=== PATIENT | male | born 1970 | race American Indian/Alaskan Native ===

== ENCOUNTER 2017-12-05 13:20 | Inpatient (IN) | payer MEDICAID ==
--- NOTE | 2017-12-05 14:05 | ED PDOC ---
Arrival/HPI - General Chief Complaint: Lower Extremity Problem/Injury Time Seen by Provider: 12/05/17 13:42 Historian: Patient - History of Present Illness Narrative History of Present Illness (Text): 12/05/17 1600 pt p/w + 3 weeks onset of not feeling well, + easily fatigued, general malaise; pt states mild exertional sob, sob worsening x last week, + intermittent chest tightness/pain x 2 weeks, worse with exertion; pt states chest pain is non- radiating; pt states + lightheadedness/dizziness, seeing stars at times but NO LOC, at times feeling like he was about to pass out; + chills, ? fever, no sweats; no palpitations, no abd pain, no n/v, + noted b/l leg swelling/pain x 3 weeks; pt felt like he cant wear his shoes due to the swelling; pt states + weight gain ~ 20-30 lbs since few months ago; pt states no urinary/bowel changes , no gross bleeding, no dark stools/bloody stools; pt denied other complaints; pt is here for further eval pt states no fall/trauma/sick contact, no travel occupational therapist was [facility] PCP: NONE Family hx: not significant Time/Duration: > week (2-3 weeks) Symptom Onset: Gradual Symptom Course: Worsening Severity Level: Severe Activities at Onset: Rest Context: Home Past Medical History - Provider Review Nursing Documentation Reviewed: Yes - Travel History Have you recently traveled outside [place] w/in the past 3 mons?: No - Past History Past History: No Previous - Infectious Disease Hx of Infectious Diseases: None - Psychiatric Hx Bipolar Disorder: Yes Hx Schizophrenia: Yes Hx Substance Use: No - Anesthesia Hx Anesthesia: No Family/Social History - Physician Review Nursing Documentation Reviewed: Yes Family/Social History: No Known Family HX Smoking Status: Former Smoker (stopped smoking ~ 10 years ago) Hx Alcohol Use: No (stopped drinking ~ 10 years ago) Frequency of alcohol use: Socially Hx Substance Use: No Hx Substance Use Treatment: No Allergies/Home Meds Allergies/Adverse Reactions: Allergies No Known Allergies Allergy (Verified 12/05/17 13:42) Home Medications: Home Meds Medication Instructions Recorded Confirmed QUEtiapine [SEROquel] 200 mg PO BID 12/05/17 12/05/17 Review of Systems - Review of Systems Constitutional: Fatigue, Weight Change Eyes: Normal ENT: Normal Respiratory: SOB. absent: Cough, Sputum, Wheezing Cardiovascular: Chest Pain Gastrointestinal: Normal Genitourinary Male: Normal Musculoskeletal: Normal Skin: Normal Neurological: Dizziness Endocrine: Normal Hemo/Lymphatic: Normal Psychiatric: Normal Physical Exam Vital Signs Reviewed: Yes Vital Signs Temp Pulse Resp BP Pulse Ox 12/05/17 15:56 75 18 132/88 100 12/05/17 14:56 136/85 12/05/17 14:14 98.0 F 82 17 140/95 H 99 12/05/17 13:37 98.1 F 82 16 127/80 97 Temperature: Afebrile Blood Pressure: Normal Pulse: Regular Respiratory Rate: Normal Appearance: Positive for: Well-Appearing, Uncomfortable, Other (mild distress due to leg pain; alert/awake, GCS = 15, oriented x 3, cooperative, follows command with ease) Pain Distress: Mild Mental Status: Positive for: Alert and Oriented X 3 - Systems Exam Head: Present: Atraumatic, Normocephalic Pupils: Present: PERRL, Other (no nystagmus, no photophobia, sclera anicteric) Extroacular Muscles: Present: EOMI Conjunctiva: Present: Normal Ears: Present: Normal Mouth: Present: Moist Mucous Membranes, Normal Teeth, Other (no drooling/stridor , no exudate/lesions, no dysphonia) Pharnyx: Present: Normal Nose (External): Present: Atraumatic Nose (Internal): Present: Normal Inspection Neck: Present: Normal Range of Motion, Trachea Midline, Other (intact ROM, no midline tenderness, no nuchal rigidity, no meningeal signs). No: MIDLINE TENDERNESS Respiratory/Chest: Present: Clear to Auscultation, Good Air Exchange, Other ( CTA b/l, no w/r/r, no accessory muscle use noted) Cardiovascular: Present: Regular Rate and Rhythm, Normal S1, S2. No: Murmurs Abdomen: Present: Normal Bowel Sounds, Other (well nourished male, no focal tenderness, no cuenca's sign, no mcburney's point tenderness, no masses/rebound/ guarding/rigidity) Back: Present: Normal Inspection. No: CVA Tenderness, Midline Tenderness Upper Extremity: Present: Normal Inspection, Normal ROM, NORMAL PULSES, Neurovascularly Intact Lower Extremity: Present: Normal Inspection, Edema, NORMAL PULSES, Normal ROM, Neurovascularly Intact, Capillary Refill < 2 s, Other (+ diffuse lower ext tenderness, + swelling with pitting edema +2-3/5 b/l up to b/l knee; strength 5/ 5 grossly intact in all limbs, neurovasc intact b/l). No: Primitivo's Sign, Deformity Neurological: Present: GCS=15, CN II-XII Intact, Speech Normal, Other (NIH stroke scale ~ 0, no facial asymmetries, no slurr speech) Skin: Present: Warm, Normal Color, Other (cap refill ~ 1sec, no ulcerations, no petechiae, no rashes, no lesions) Psychiatric: Present: Alert, Oriented x 3 Medical Decision Making ED Course and Treatment: 12/05/17 14:04 Impression: sob/near syncope, weakness, b/l leg swelling/pain, chest pain i have consider all the differential diagnosis regarding pt's chief medical complaints/clinical findings, including but are not limited to: r/o ACS, r/o failure, unlikely PE A/P: r/o acs, r/o heart failure, r/o PE?? - labs - iv - xray - ct?? - acs eval - observe - supportive care 12/05/2017 16:26 Chest X-ray IMPRESSION: No active pulmonary disease. Dictator: Talia Mo MD 12/05/17 17:04 pt is currently stable pt denied sob, no active chest pain pt continues to have b/l leg pain pt is made aware of his medical results agrees with admission I spoke to hospitalists correspondence review clerk, Dr Yan, made aware, agrees with admission Re-evaluation Time: 16:47 Reassessment Condition: Improving,but remains with symptoms - Lab Interpretations Lab Results: 12/05/17 14:50 12/05/17 14:50 Lab Results 12/05/17 15:26: Urine Color Yellow, Urine Appearance Clear, Urine pH 6.0, Ur Specific [place] 1.020, Urine Protein Negative, Urine Glucose (UA) Negative, Urine Ketones Negative, Urine Blood Trace-intact H, Urine Nitrate Negative, Urine Bilirubin Negative, Urine Urobilinogen 1.0 H, Ur Leukocyte Esterase Negative, Urine RBC 0 - 2, Urine WBC Negative, Ur Epithelial Cells None 12/05/17 14:52: pO2 50, VBG pH 7.30 L, VBG pCO2 59.0, VBG HCO3 29.0 H, VBG Total CO2 30.8 H, VBG O2 Sat (Calc) 86.7 H, VBG Base Excess 1.2, VBG Potassium 4.6, Glucose 74 L, Lactate 1.4, FiO2 21.0, Sodium 136.0, Chloride 106.0, Venous Blood Potassium 4.6 12/05/17 14:50: Sodium 140, Potassium 4.3, Chloride 103, Carbon Dioxide 28, Anion Gap 13, BUN 16, Creatinine 0.8, Est GFR ( Amer) > 60, Est GFR (Non- Af Amer) > 60, Random Glucose 86, Calcium 8.9, Total Bilirubin 0.8, AST 22, ALT 50, Alkaline Phosphatase 86, Lactate Dehydrogenase 607, Total Creatine Kinase 323 H, CK-MB (CK-2) 1.9, CK-MB (CK-2) % Cancelled, Troponin I < 0.01, NT-Pro-B Natriuret Pep 38.4, Total Protein 7.0, Albumin 3.4, Globulin 3.6, Albumin/ Globulin Ratio 0.9 L, Lipase 27 12/05/17 14:50: PT 14.5 H, INR 1.27 H, APTT 30.6 12/05/17 14:50: WBC 5.2, RBC 3.50, Hgb 9.7 L, Hct 31.0 L, MCV 88.6, MCH 27.7, MCHC 31.3, RDW 14.2, Plt Count 198, MPV 10.2, Gran % 51.8, Lymph % (Auto) 29.0, Harvey % (Auto) 7.5 H, Eos % (Auto) 11.3 H, Baso % (Auto) 0.4, Gran # 2.70, Lymph # (Auto) 1.5, Harvey # (Auto) 0.4, Eos # (Auto) 0.6, Baso # (Auto) 0.02 I have reviewed the lab results: Yes Interpretation: Abnormal lab values (mildly elevated CK) - RAD Interpretation Narrative RAD Interpretations (Text): 12/05/17 16:47 HISTORY: COMPARISON: No prior. TECHNIQUE: Chest PA and lateral FINDINGS: LINES AND TUBES: None. LUNG AND PLEURA: The lungs are well inflated and clear. HEART AND MEDIASTINUM: The heart is not enlarged. The hilar and mediastinal contours are within normal limits. SKELETAL STRUCTURES: The bony structures are within normal limits for the patient's age. VISUALIZED UPPER ABDOMEN: Normal. OTHER FINDINGS: None. IMPRESSION: No active pulmonary disease. 12/05/17 16:49 Prelim U/S duplex: Negative for DVT b/l lower ext Radiology Orders: 12/05/17 14:00 CHEST TWO VIEWS (PA/LAT) [RAD] Stat DUPLEX LOWER EXTRM VEIN BILAT [US] Stat Health Outreach Worker: Radiologist - EKG Interpretation EKG Interpretation (Text): 12/05/17 16:49 NSR at 80 bpm, normal axis, no ectopy, min voltage criteral for LVH, no st changes, ABNL EKG; no old ekg to compare with Interpreted by ED Physician: Yes Type: 12 lead EKG Comparison: No previous EKG avail. - Medication Orders Current Medication Orders: Discontinued Medications Aspirin (Aspirin) 325 mg PO STAT STA Stop: 12/05/17 14:04 Last Admin: 12/05/17 14:56 Dose: 325 mg Furosemide (Lasix) 40 mg IVP STAT STA Stop: 12/05/17 14:04 Last Admin: 12/05/17 14:56 Dose: 40 mg MAR Blood Pressure Document 12/05/17 14:56 SF (Rec: 12/05/17 14:56 SF [id number]) Blood Pressure Blood Pressure (100/60-150/90) 136/85 IVP Administration Document 12/05/17 14:56 SF (Rec: 12/05/17 14:56 [id number]) Charges for Administration # of IVP Administrations 1 Oxycodone/Acetaminophen (Percocet 5/325 Mg Tab) 1 tab PO STAT STA Stop: 12/05/17 16:55 Disposition/Present on Arrival - Present on Arrival Any Indicators Present on Arrival: No History of DVT/PE: No History of Uncontrolled Diabetes: No Urinary Catheter: No History of Decub. Ulcer: No History Surgical Site Infection Following: None - Disposition Have Diagnosis and Disposition been Completed?: Yes Diagnosis: Chest pain with low risk for cardiac etiology, Pain and swelling of lower leg, Weakness generalized, Lightheadedness, Near syncope Disposition: HOSPITALIZED Disposition Time: 16:59 Patient Plan: Admission Patient Problems: Current Active Problems Problem Status Onset Chest pain with low risk for cardiac etiology Acute Pain and swelling of lower leg Acute Weakness generalized Acute Lightheadedness Acute Near syncope Acute Condition: STABLE Discharge Instructions (ExitCare): Chest Pain (ED), Weakness (ED) Print Language: PORTUGUESE Forms: [employer] (Frisian)
[2017-12-05 15:24] LABS: VENOUS BLOOD GAS BASE EXCESS 1.2 mmol/L (0.0-2.0); VENOUS BLOOD GAS PO2 50 mm/Hg (30-55)
[2017-12-05 15:43] LABS: BASO # 0.02 K/mm3 (0.0-2.0); BASO % 0.4 % (0.0-3.0); EOS # 0.6 (0.0-0.7); EOS % 11.3 % (1.5-5.0); GRAN # 2.7 (1.4-6.5); GRAN % 51.8 % (50.0-68.0); HEMOGLOBIN 9.7 g/dL (14.0-18.0); LYMPH # 1.5 (1.2-3.4); MEAN CELL VOLUME 88.6 fl (80.0-105.0); MEAN CORPUSCULAR HEMOGLOBIN 27.7 pg (25.0-35.0); MEAN CORPUSCULAR HGB CONC 31.3 g/dl (31.0-37.0); MEAN PLATELET VOLUME 10.2 fl (7.0-11.0); MONO # 0.4 (0.1-0.6); MONO % 7.5 % (1.0-6.0); RBC 3.5 10^6/uL (3.5-6.1); RED CELL DISTRIBUTION WIDTH 14.2 % (11.5-14.5); WHITE BLOOD COUNT 5.2 10^3/ul (4.5-11.0)
[2017-12-05 15:52] LABS: INR 1.27 (0.93-1.08); PROTHROMBIN TIME 14.5 SECONDS (9.4-12.5)
[2017-12-05 15:53] LABS: PARTIAL THROMBOPLASTIN TIME 30.6 Seconds (25.1-36.5)
[2017-12-05 15:57] LABS: URINE BILIRUBIN NEGATIVE (NEGATIVE); URINE BLOOD TRACE-INTACT (NEGATIVE); URINE GLUCOSE (UA) NEGATIVE (NEGATIVE); URINE LEUKOCYTE ESTERASE NEGATIVE Leu/uL (NEGATIVE); URINE NITRATE NEGATIVE (NEGATIVE); URINE PROTEIN NEGATIVE mg/dL (<30 mg/dL)
[2017-12-05 16:01] LABS: ALB/GLOB RATIO 0.9 (1.1-1.8); ALBUMIN 3.4 g/dL (3.0-4.8); ALT/SGPT 50 U/L (7-56); AST/SGOT 22 U/L (17-59); BLOOD UREA NITROGEN 16 mg/dL (7-21); CALCIUM 8.9 mg/dL (8.4-10.5); GFR AFRICAN-AMERICAN > 60; GFR NON-AFRICAN AMERICAN > 60; LIPASE 27 U/L (23-300)
[2017-12-05 16:04] LABS: URINE APPEARANCE CLEAR (CLEAR); URINE COLOR YELLOW (YELLOW)
[2017-12-05 16:09] LABS: B-TYPE NATRIURETIC PEPTIDE 38.4 pg/mL (0-450); TROPONIN I < 0.01 ng/mL
[2017-12-05 16:21] LABS: URINE RBC 0 - 2 /hpf (0-2); URINE WBC NEGATIVE /hpf (0-6)
[2017-12-05 16:33] LABS: CK-MB 1.9 ng/mL (0.0-3.6)
[2017-12-05] MEDS ORDERED: Oxycodone/Acetaminophen 5/325 mg Tab PO STA (16:54)
[2017-12-05 17:40] LABS: BARBITURATES, UR NEGATIVE (NEGATIVE); BENZODIAZEPINES, UR POSITIVE (NEGATIVE); OPIATES, UR POSITIVE (NEGATIVE); PHENCYCLIDINE, UR NEGATIVE (NEGATIVE)
[2017-12-05 17:58] LABS: MAGNESIUM 2.1 mg/dL (1.7-2.2)
[2017-12-05] MEDS ORDERED: QUETIAPINE 200 MG PO SCH (18:00)
--- NOTE | 2017-12-05 18:23 | CP.PCM.HP ---
<Chris White - Last Filed: 12/05/17 18:12> History of Present Illness - History of Present Illness History of Present Illness: Mr. Robles is a 47 year old male with a past medical history significant for schizophrenia and bipolar disorder who presents with two weeks of bilateral lower extremity edema and four weeks of dyspnea on exertion with associated chest tightness. Patient reports that two weeks ago he awoke to find both of his legs swollen with no inciting event to his recollection. He denies this ever happening in the past. He reports that he has sharp pain in his legs whenever he walks as well as at rest. He also endorses a four week history of progressive dyspnea on exertion when walking half of a block. He was previously able to walk several blocks without difficulty. This is associated with a chest tightness on the left side of his chest with radiation to the left shoulder. He reports that this tightness does not occur with rest and that it lasts anywhere from five to ten minutes. He reports that both his dyspnea and chest tightness are relieved with rest. He has never had either of these complaints in the past. Patient has had one recent diarrheal illness two weeks ago that lasted four days which resolved on its own. He denies any other recent illnesses. Of note, patient was recently incarcerated. Patient denies any fever, chills, headache, changes in his vision, dysphagia, sore throat, chest pain, palpitations, syncope, cough, wheezing, sputum, hemoptysis, abdominal pain, N/V , constipation, hematuria, changes in his urine stream, skin changes, numbness/ tingling of any extremity, sick contacts, recent travel, recent surgery or any recent hospitalizations. PMH: Schizophrenia and Bipolar Disorder PSH: Hernia repair at [facility] [place] (1999) Family History: Denies any history of CVA, NV, CAD, HTN or DM2; Both sisters from an unknown cancer before the age of 55 Social History: Denies any tobacco, alcohol or illicit drug use; Works as a construction craft laborer; Has manager of case management Allergies: NKDA Home Medications: Seroquel 200mg BID Present on Admission - Present on Admission Any Indicators Present on Admission: No Review of Systems - Review of Systems Review of Systems: As per HPI, otherwise negative Past Patient History - Infectious Disease Hx of Infectious Diseases: None - Past Social History Smoking Status: Former Smoker (stopped smoking ~ 10 years ago) - PSYCHIATRIC Hx Bipolar Disorder: Yes Hx Schizophrenia: Yes Hx Substance Use: No - ANESTHESIA Hx Anesthesia: No Meds Allergies/Adverse Reactions: Allergies Allergy/AdvReac Type Severity Reaction Status Date / Time No Known Allergies Allergy Verified 12/05/17 13:42 Physical Exam - Constitutional Appears: Non-toxic, No Acute Distress - Head Exam Head Exam: ATRAUMATIC, NORMOCEPHALIC - Eye Exam Eye Exam: EOMI, PERRL Pupil Exam: NORMAL ACCOMODATION - ENT Exam ENT Exam: Mucous Membranes Moist, Normal Exam, Normal Oropharynx - Neck Exam Neck exam: Positive for: Full Rom, Normal Inspection, Tenderness. Negative for : Lymphadenopathy, Meningismus, Thyromegaly - Respiratory Exam Respiratory Exam: Clear to Auscultation Bilateral, NORMAL BREATHING PATTERN. absent: Accessory Muscle Use, Chest Wall Tenderness, Decreased Breath Sounds, Prolonged Expiratory Phase, Rales, Rhonchi, Wheezes, Respiratory Distress, Stridor - Cardiovascular Exam Cardiovascular Exam: REGULAR RHYTHM, RRR, +S1, +S2. absent: Bradycardia, Tachycardia, Clicks, Diastolic murmur, Gallop, Irregular Rhythm, JVD, Rubs, +S4 , Systolic Murmur - GI/Abdominal Exam GI & Abdominal Exam: Normal Bowel Sounds, Soft. absent: Bruit, Diminished Bowel Sounds, Distended, Firm, Guarding, Hernia, Hyperactive Bowel Sounds, Hypoactive Bowel Sounds, Mass, Organomegaly, Pulsatile Mass, Rebound, Rigid, Tenderness - Exam Exam: absent: Scrotal Swelling - Extremities Exam Extremities exam: Positive for: calf tenderness, normal capillary refill, pedal edema (1+ pitting b/l to knees), tenderness, pedal pulses present. Negative for : normal inspection - Back Exam Back exam: NORMAL INSPECTION. absent: CVA tenderness (L), CVA tenderness (R), muscle spasm, paraspinal tenderness, tenderness, vertebral tenderness - Neurological Exam Neurological exam: Alert, CN II-XII Intact, Oriented x3, Reflexes Normal - Psychiatric Exam Psychiatric exam: Normal Affect, Normal Mood - Skin Skin Exam: Dry, Intact, Normal Color, Warm Results - Vital Signs Recent Vital Signs: Last Vital Signs Temp 98.0 F 12/05/17 14:14 Pulse 72 12/05/17 17:34 Resp 17 12/05/17 17:34 BP 134/80 12/05/17 17:34 Pulse Ox 99 12/05/17 17:34 - Labs Result Diagrams: 12/05/17 14:50 12/05/17 14:50 Assessment & Plan - Assessment and Plan (Free Text) Assessment: 47 year old male with a past medical history significant for schizophrenia and bipolar disorder who presents with two weeks of bilateral lower extremity edema and four weeks of dyspnea on exertion with associated chest tightness. In the ED , patient was found to have a no active disease on chest x-ray and to be in normal sinus rhythm at 80 beats/min. A lower extremity ultrasound was preliminarily negative for DVT's. His BNP, BUN/Creatinine and initial troponin were within normal limits. He was also found to have a normocytic anemia on CBC. Plan: 1. Lower Extremity Edema -Lower Extremity Ultrasound preliminarily negative for DVT's -BNP and BUN/Creatinine within normal limits -UA without significant abnormalities -CT Abdomen/Pelvis with PO Contrast and Echo pending -IV Lasix 40mg IVP Daily -Tylenol PRN for pain control -PT/OT evaluation and treatment pending 2. Dyspnea on Exertion with associated Chest Tightness -EKG showing normal sinus rhythm at 80 beats/min with no ST-T wave changes -Initial troponin negative, serial troponins pending -Lipase and TSH within normal limits -Lipid panel and Hemoglobin A1c pending -Pain control as above -Strict I/O's and daily weights -Cardiology consulted, all recommendations appreciated 3. Normocytic Anemia -H/H at 9.7/31.0 -Iron, TIBC, Ferritin, Transferrin, Haptoglobin, Lead, Vitamin B12, Folate and Peripheral Smear pending -Continue to monitor with daily CBC's 4. History of Bipolar Disorder and Schizophrenia -Continue home Seroquel GI Prophylaxis: Protonix DVT Prophylaxis: Heparin Patient seen and case discussed with attending, Dr. Brennan Yan. - Date & Time Date: 12/05/17 Time: 18:28 <Brennan Yan - Last Filed: 12/06/17 10:05> Results - Vital Signs Recent Vital Signs: Last Vital Signs Temp 98.4 F 12/06/17 06:00 Pulse 75 12/06/17 06:00 Resp 20 12/06/17 06:00 BP 133/84 12/06/17 06:00 Pulse Ox 98 12/06/17 06:00 - Labs Result Diagrams: 12/06/17 06:00 12/06/17 06:00 Labs: Laboratory Results - last 24 hr 12/05/17 12/05/17 12/05/17 20:05 20:05 20:05 WBC RBC Hgb Hct MCV MCH MCHC RDW Plt Count MPV Gran % Lymph % (Auto) Henry % (Auto) Eos % (Auto) Baso % (Auto) Gran # Lymph # (Auto) Henry # (Auto) Eos # (Auto) Baso # (Auto) Haptoglobin TNP APTT Sodium Potassium Chloride Carbon Dioxide Anion Gap BUN Creatinine Est GFR ( Amer) Est GFR (Non-Af Amer) Random Glucose Calcium Iron TIBC % Saturation Total Bilirubin AST ALT Alkaline Phosphatase Troponin I < 0.01 Total Protein Albumin Globulin Albumin/Globulin Ratio Alcohol, Quantitative < 10 12/05/17 12/06/17 12/06/17 20:05 03:00 06:00 WBC 4.3 L RBC 3.90 Hgb 10.6 L Hct 33.8 L MCV 86.7 MCH 27.2 MCHC 31.4 RDW 14.1 Plt Count 215 MPV 9.9 Gran % 50.6 Lymph % (Auto) 27.9 Henry % (Auto) 9.1 H Eos % (Auto) 12.2 H Baso % (Auto) 0.2 Gran # 2.16 Lymph # (Auto) 1.2 Henry # (Auto) 0.4 Eos # (Auto) 0.5 Baso # (Auto) 0.01 Haptoglobin APTT Sodium Potassium Chloride Carbon Dioxide Anion Gap BUN Creatinine Est GFR ( Amer) Est GFR (Non-Af Amer) Random Glucose Calcium Iron 35 L TIBC 219 L % Saturation 16 L Total Bilirubin AST ALT Alkaline Phosphatase Troponin I < 0.01 Total Protein Albumin Globulin Albumin/Globulin Ratio Alcohol, Quantitative 12/06/17 12/06/17 06:00 06:00 WBC RBC Hgb Hct MCV MCH MCHC RDW Plt Count MPV Gran % Lymph % (Auto) Henry % (Auto) Eos % (Auto) Baso % (Auto) Gran # Lymph # (Auto) Henry # (Auto) Eos # (Auto) Baso # (Auto) Haptoglobin APTT 29.6 Sodium 141 Potassium 4.3 Chloride 103 Carbon Dioxide 28 Anion Gap 14 BUN 12 Creatinine 0.6 L Est GFR ( Amer) > 60 Est GFR (Non-Af Amer) > 60 Random Glucose 102 Calcium 9.3 Iron TIBC % Saturation Total Bilirubin 1.2 AST 28 ALT 52 Alkaline Phosphatase 100 Troponin I Total Protein 7.5 Albumin 3.6 Globulin 4.0 Albumin/Globulin Ratio 0.9 L Alcohol, Quantitative Attending/Attestation - Attestation I have personally seen and examined this patient.: Yes I have fully participated in the care of the patient.: Yes I have reviewed all pertinent clinical information: Yes Notes (Text): I have seen and examined the patient at bedside. Agree with the above note with the following additions/ exceptions: Briefly this is 47 year old male with history of schizophrenia and bipolar disorder who was recently incarcerated came today for evaluation of bilateral lower extremity edema, M[place], significant unintentional weight gain and chest tightness. Patient denies any recent immobilization or palpitations. He does not smoke, drink or use drugs. Denies family history of sudden cardiac , cardiomyopathy, DVT, PE or cancer. Bilateral LE US prelim negative for DVT. Will follow up official results. Will order CT abdomen and pelvis. Will order serial trop, ekg, echo and strict Is and Os. Start Lasix. Will order for PT eval. Will do work up for normocytic anemia. Continue seroquel. Patient denies homicidal and suicidal ideation. Upon discharge patient will follow up in [facility] clinic and psychiatrist. Dr Brennan Yan
--- NOTE | 2017-12-05 19:08 | US ---
HISTORY: Leg pain and swelling. Evaluate for DVT PHYSICIAN(S): Papi Conde MD. TECHNIQUE: Duplex sonography and color-flow Doppler with graded compression were used to evaluate the deep venous systems of both lower extremities. The exam is limited by edema. FINDINGS: The visualized deep venous systems of both lower extremities are sonographically normal and compressible. Normal wave forms and augmentation are seen. There is no sonographic evidence for deep venous thrombosis in the visualized segments of both lower extremities. IMPRESSION: No sonographic evidence for deep venous thrombosis in the visualized segments of both lower extremities.
[2017-12-05] MEDS ORDERED: Iohexol 240 (50 ml) ONE (20:20)
[2017-12-05 20:37] LABS: IRON 35 ug/dL (45-180)
[2017-12-05 20:46] LABS: % IRON SATURATION 16 % (20-55); TOTAL IRON BINDING CAPACITY 219 ug/dL (261-462)
[2017-12-05] MEDS ORDERED: Barium Sulfate Susp 2.1% w/v, 2.0% w/w 450 mL Bottle PO ONE (20:55)
[2017-12-06] MEDS ORDERED: Pantoprazole 40 mg EC Tab PO SCH (06:00)
[2017-12-06 06:10] VITALS: BP 133/84; PULSE 75; RESP 20; TEMP 98.4; O2SAT 98
[2017-12-06 07:10] LABS: BASO # 0.01 K/mm3 (0.0-2.0); BASO % 0.2 % (0.0-3.0); EOS # 0.5 (0.0-0.7); EOS % 12.2 % (1.5-5.0); GRAN # 2.16 (1.4-6.5); GRAN % 50.6 % (50.0-68.0); HEMOGLOBIN 10.6 g/dL (14.0-18.0); LYMPH # 1.2 (1.2-3.4); LYMPH % 27.9 % (22.0-35.0); MEAN CELL VOLUME 86.7 fl (80.0-105.0); MEAN CORPUSCULAR HEMOGLOBIN 27.2 pg (25.0-35.0); MEAN CORPUSCULAR HGB CONC 31.4 g/dl (31.0-37.0); MEAN PLATELET VOLUME 9.9 fl (7.0-11.0); MONO # 0.4 (0.1-0.6); MONO % 9.1 % (1.0-6.0); RBC 3.9 10^6/uL (3.5-6.1); RED CELL DISTRIBUTION WIDTH 14.1 % (11.5-14.5); WHITE BLOOD COUNT 4.3 10^3/ul (4.5-11.0)
[2017-12-06 07:27] LABS: ALB/GLOB RATIO 0.9 (1.1-1.8); ALBUMIN 3.6 g/dL (3.0-4.8); ALT/SGPT 52 U/L (7-56); AST/SGOT 28 U/L (17-59); BLOOD UREA NITROGEN 12 mg/dL (7-21); CALCIUM 9.3 mg/dL (8.4-10.5); GFR AFRICAN-AMERICAN > 60; GFR NON-AFRICAN AMERICAN > 60
[2017-12-06] MEDS ORDERED: Apap-Butalbital-Caffeine 325-50-40mg Tab PO PRN (08:02)
--- NOTE | 2017-12-06 08:07 | CP.PCM.PN ---
Subjective - Date & Time of Evaluation Date of Evaluation: 12/06/17 Time of Evaluation: 08:03 - Subjective Subjective: Hospitalist Progress Note, Kate Patel PGY2 Patient seen and examined at bedside. As per nursing staff, there were no acute overnight events. Patient refused to drink contrast overnight. He reports he was too sleepy. He said he will drink it this am. Patient complains of frontal headache that does not radiate. He denies vision changes, chest pain, shortness of breath, nausea/vomiting/diarrhea, numbness/tingling, fever or chills. Objective - Vital Signs/Intake and Output Vital Signs (last 24 hours): Temp Pulse Resp BP Pulse Ox 98.4 F 75 20 133/84 98 12/06/17 06:00 12/06/17 06:00 12/06/17 06:00 12/06/17 06:00 12/06/17 06:00 Intake and Output: 12/06/17 12/06/17 06:59 18:59 Intake Total 480 Output Total 1600 Balance -1120 - Medications Medications: Current Medications Acetaminophen (Tylenol 325mg Tab) 650 mg PO Q6H PRN PRN Reason: Pain, Mild (1-3) Last Admin: 12/05/17 21:56 Dose: 650 mg Acetaminophen/Butalbital/Caffeine (Fioricet) 1 tab PO TID PRN PRN Reason: Headache Furosemide (Lasix) 40 mg IVP DAILY SYDNI Gabapentin (Neurontin) 100 mg PO TID PRN; Protocol PRN Reason: Pain, moderate (4-7) Heparin Sodium (Porcine) (Heparin) 5,000 units SC Q12 SYDNI PRN Reason: Protocol Last Admin: 12/05/17 21:55 Dose: 5,000 units Pantoprazole Sodium (Protonix Ec Tab) 40 mg PO 0600 [facility] Last Admin: 12/06/17 05:17 Dose: 40 mg Quetiapine Fumarate (Seroquel) 200 mg PO BID [facility] Last Admin: 12/05/17 20:20 Dose: 200 mg - Labs Labs: 12/06/17 06:00 12/06/17 06:00 PT 14.5 SECONDS (9.4-12.5) H 12/05/17 14:50 INR 1.27 (0.93-1.08) H 12/05/17 14:50 APTT 29.6 Seconds (25.1-36.5) 12/06/17 06:00 - Constitutional Appears: No Acute Distress - Head Exam Head Exam: ATRAUMATIC, NORMAL INSPECTION, NORMOCEPHALIC - Eye Exam Eye Exam: Normal appearance, PERRL Pupil Exam: NORMAL ACCOMODATION - ENT Exam ENT Exam: Mucous Membranes Moist - Neck Exam Neck Exam: Full ROM - Respiratory Exam Respiratory Exam: Clear to Ausculation Bilateral, NORMAL BREATHING PATTERN. absent: Rales, Rhonchi, Wheezes - Cardiovascular Exam Cardiovascular Exam: REGULAR RHYTHM, +S1, +S2. absent: Gallop, Rubs, Murmur - GI/Abdominal Exam GI & Abdominal Exam: Soft, Normal Bowel Sounds. absent: Rigid, Tenderness, Mass , Rebound - Extremities Exam Extremities Exam: Pedal Edema (+ 2 pitting edema below knee bilaterally ) - Neurological Exam Neurological Exam: Alert, Awake, CN II-XII Intact, Oriented x3 - Psychiatric Exam Psychiatric exam: Flat Affect, Normal Mood - Skin Skin Exam: Dry, Intact, Warm Assessment and Plan - Assessment and Plan (Free Text) Assessment: This is a 47yo male with past medical history of schizoaffective disorder who is admitted for bilateral LE edema x 2 weeks and dyspnea on exertion. Plan: 1. Lower Extremity Edema (improved) - rule out cardiac etiology v. lymphedema - BNP normal, Kidney function and U/A within normal limits - LE U/S showed no evidence of DVT - CT A/P pending - Echo pending - Cardiology consulted - Continue Lasix - Tylenol prn pain - Continue Strict I&O and daily weights 2. Dyspnea on Exertion with associated Chest Tightness - Rule out CHF- pt has no family hx of sudden cardiac or heart issues - Echo pending - EKG showed NSR this AM with possible LVH - Troponin neg x 3 - TSH, Lipase Normal, cholesterol low - HgbA1c pending but sugars have been normal - Cardiology consulted 3. Anemia- stable - normocytic without overt signs of bleeding - Iron low, TIBC low, %sat low - Lead level pending, peripheral smear pending -Continue to monitor with daily CBC's 4. History of Bipolar Disorder and Schizophrenia -Continue home Seroquel GI Prophylaxis: Protonix DVT Prophylaxis: Heparin Patient seen and case discussed with attending, Dr. Brennan Yan.
--- NOTE | 2017-12-06 08:27 | CP.PCM.DIS ---
<Alexa Patel - Last Filed: 12/06/17 08:23> Provider - Provider Date of Admission: 12/05/17 16:55 Attending physician: Brennan Yan MD Consults: Cardiology: Dr. Lopez Time Spent in preparation of Discharge (in minutes): 25 Hospital Course - Lab Results Lab Results: Most Recent Lab Values WBC 4.3 10^3/ul (4.5-11.0) L 12/06/17 06:00 RBC 3.90 10^6/uL (3.5-6.1) 12/06/17 06:00 Hgb 10.6 g/dL (14.0-18.0) L 12/06/17 06:00 Hct 33.8 % (42.0-52.0) L 12/06/17 06:00 MCV 86.7 fl (80.0-105.0) 12/06/17 06:00 MCH 27.2 pg (25.0-35.0) 12/06/17 06:00 MCHC 31.4 g/dl (31.0-37.0) 12/06/17 06:00 RDW 14.1 % (11.5-14.5) 12/06/17 06:00 Plt Count 215 10^3/uL (120.0-450.0) 12/06/17 06:00 MPV 9.9 fl (7.0-11.0) 12/06/17 06:00 Gran % 50.6 % (50.0-68.0) 12/06/17 06:00 Lymph % (Auto) 27.9 % (22.0-35.0) 12/06/17 06:00 Mora % (Auto) 9.1 % (1.0-6.0) H 12/06/17 06:00 Eos % (Auto) 12.2 % (1.5-5.0) H 12/06/17 06:00 Baso % (Auto) 0.2 % (0.0-3.0) 12/06/17 06:00 Gran # 2.16 (1.4-6.5) 12/06/17 06:00 Lymph # (Auto) 1.2 (1.2-3.4) 12/06/17 06:00 Mora # (Auto) 0.4 (0.1-0.6) 12/06/17 06:00 Eos # (Auto) 0.5 (0.0-0.7) 12/06/17 06:00 Baso # (Auto) 0.01 K/mm3 (0.0-2.0) 12/06/17 06:00 Haptoglobin TNP 12/05/17 20:05 PT 14.5 SECONDS (9.4-12.5) H 12/05/17 14:50 INR 1.27 (0.93-1.08) H 12/05/17 14:50 APTT 29.6 Seconds (25.1-36.5) 12/06/17 06:00 pO2 50 mm/Hg (30-55) 12/05/17 14:52 VBG pH 7.30 (7.32-7.43) L 12/05/17 14:52 VBG pCO2 59.0 (40-60) 12/05/17 14:52 VBG HCO3 29.0 mmol/l (21-28) H 12/05/17 14:52 VBG Total CO2 30.8 mmol.L (22-28) H 12/05/17 14:52 VBG O2 Sat (Calc) 86.7 % (40-65) H 12/05/17 14:52 VBG Base Excess 1.2 mmol/L (0.0-2.0) 12/05/17 14:52 VBG Potassium 4.6 mmol/L (3.6-5.2) 12/05/17 14:52 Sodium 136.0 mmol/L (132-148) 12/05/17 14:52 Chloride 106.0 mmol/L (98-107) 12/05/17 14:52 Glucose 74 mg/dl (75-110) L 12/05/17 14:52 Lactate 1.4 mmol/L (0.7-2.1) 12/05/17 14:52 FiO2 21.0 % 12/05/17 14:52 Sodium 141 mmol/L (132-148) 12/06/17 06:00 Potassium 4.3 mmol/L (3.6-5.0) 12/06/17 06:00 Chloride 103 mmol/L (98-107) 12/06/17 06:00 Carbon Dioxide 28 mmol/L (21-33) 12/06/17 06:00 Anion Gap 14 (10-20) 12/06/17 06:00 BUN 12 mg/dL (7-21) 12/06/17 06:00 Creatinine 0.6 mg/dl (0.8-1.5) L 12/06/17 06:00 Est GFR ( Amer) > 60 12/06/17 06:00 Est GFR (Non-Af Amer) > 60 12/06/17 06:00 Random Glucose 102 mg/dL (70-110) 12/06/17 06:00 Calcium 9.3 mg/dL (8.4-10.5) 12/06/17 06:00 Phosphorus 3.2 mg/dL (2.5-4.5) 12/05/17 14:50 Magnesium 2.1 mg/dL (1.7-2.2) 12/05/17 14:50 Iron 35 ug/dL (45-180) L 12/05/17 20:05 TIBC 219 ug/dL (261-462) L 12/05/17 20:05 % Saturation 16 % (20-55) L 12/05/17 20:05 Total Bilirubin 1.2 mg/dL (0.2-1.3) 12/06/17 06:00 AST 28 U/L (17-59) 12/06/17 06:00 ALT 52 U/L (7-56) 12/06/17 06:00 Alkaline Phosphatase 100 U/L (38-126) 12/06/17 06:00 Lactate Dehydrogenase 607 U/L (333-699) 12/05/17 14:50 Total Creatine Kinase 323 U/L (35-230) H 12/05/17 14:50 CK-MB (CK-2) 1.9 ng/mL (0.0-3.6) 12/05/17 14:50 CK-MB (CK-2) % Cancelled 12/05/17 14:50 Troponin I < 0.01 ng/mL 12/06/17 03:00 NT-Pro-B Natriuret Pep 38.4 pg/mL (0-450) 12/05/17 14:50 Total Protein 7.5 g/dL (5.8-8.3) 12/06/17 06:00 Albumin 3.6 g/dL (3.0-4.8) 12/06/17 06:00 Globulin 4.0 gm/dL 12/06/17 06:00 Albumin/Globulin Ratio 0.9 (1.1-1.8) L 12/06/17 06:00 Triglycerides 33 mg/dL (35-160) L 12/05/17 14:50 Cholesterol 123 mg/dL (130-200) L 12/05/17 14:50 LDL Cholesterol Direct 87 mg/dL (0-129) 12/05/17 14:50 HDL Cholesterol 27 mg/dL (29-60) L 12/05/17 14:50 Lipase 27 U/L (23-300) 12/05/17 14:50 TSH 3rd Generation 0.52 mIU/mL (0.46-4.68) 12/05/17 14:50 Venous Blood Potassium 4.6 mmol/L (3.6-5.2) 12/05/17 14:52 Urine Color Yellow (YELLOW) 12/05/17 15:26 Urine Appearance Clear (CLEAR) 12/05/17 15:26 Urine pH 6.0 (4.7-8.0) 12/05/17 15:26 Ur Specific Ponderosa 1.020 (1.005-1.035) 12/05/17 15:26 Urine Protein Negative mg/dL (<30 mg/dL) 12/05/17 15:26 Urine Glucose (UA) Negative mg/dL (NEGATIVE) 12/05/17 15:26 Urine Ketones Negative mg/dL (NEGATIVE) 12/05/17 15:26 Urine Blood Trace-intact (NEGATIVE) H 12/05/17 15:26 Urine Nitrate Negative (NEGATIVE) 12/05/17 15:26 Urine Bilirubin Negative (NEGATIVE) 12/05/17 15:26 Urine Urobilinogen 1.0 E.U./dL (<1 E.U./dL) H 12/05/17 15:26 Ur Leukocyte Esterase Negative Jose/uL (NEGATIVE) 12/05/17 15:26 Urine RBC 0 - 2 /hpf (0-2) 12/05/17 15:26 Urine WBC Negative /hpf (0-6) 12/05/17 15:26 Ur Epithelial Cells None /hpf (0-5) 03/01/18 15:26 Urine Opiates Screen Positive (NEGATIVE) H 12/05/17 15:26 Urine Methadone Screen Negative (NEGATIVE) 12/05/17 15:26 Ur Barbiturates Screen Negative (NEGATIVE) 12/05/17 15:26 Ur Phencyclidine Scrn Negative (NEGATIVE) 12/05/17 15:26 Ur Amphetamines Screen Negative (NEGATIVE) 12/05/17 15:26 U Benzodiazepines Scrn Positive (NEGATIVE) 12/05/17 15:26 U Oth Cocaine Metabols Negative (NEGATIVE) 12/05/17 15:26 U Cannabinoids Screen Negative (NEGATIVE) 12/05/17 15:26 Alcohol, Quantitative < 10 mg/dL (0-10) 12/05/17 20:05 - Hospital Course Hospital Course: This is a 47yo male with past medical history of schizoaffective disorder who is admitted for bilateral LE edema x 2 weeks and dyspnea on exertion. Patient was found to be anemic possibly secondary to anemia of chronic disease. He was placed on Lasix for LE swelling. Patient was scheduled to have CT A/P and Echo. Patient was seen and examined this morning and was complaining of headache. Otherwise he felt better. Patient then decided to leave AMA despite discussing the benefits of staying and the risks of leaving against medical advice. Patient verbalized understanding, but wanted to leave anyway. I recommended [place] [facility] [place]. - Date & Time of H&P Date of H&P: 12/05/17 Time of H&P: 18:00 Discharge Exam - Head Exam Head Exam: ATRAUMATIC, NORMAL INSPECTION, NORMOCEPHALIC - Eye Exam Eye Exam: Normal appearance, PERRL Pupil Exam: NORMAL ACCOMODATION - ENT Exam ENT Exam: Mucous Membranes Moist - Respiratory Exam Respiratory Exam: Clear to PA & Lateral, NORMAL BREATHING PATTERN, UNREMARKABLE. absent: Rales, Rhonchi, Wheezes - Cardiovascular Exam Cardiovascular Exam: REGULAR RHYTHM, +S1, +S2. absent: Gallop, Rubs, Systolic Murmur - GI/Abdominal Exam GI & Abdominal Exam: Normal Bowel Sounds, Soft, Unremarkable. absent: Mass, Rebound, Rigid, Tenderness - Extremities Exam Extremities exam: pedal edema (+ 2 bilaterally below knee ) - Neurological Exam Neurological exam: Alert, CN II-XII Intact, Oriented x3 - Psychiatric Exam Psychiatric exam: Flat Affect, Normal Mood - Skin Skin Exam: Dry, Intact, Warm Discharge Plan - Follow Up Plan Condition: STABLE Disposition: AGAINST MEDICAL ADVICE Ref[place] [facility] [place] [facility] [place] <Brennan Yan - Last Filed: 12/06/17 10:08> Provider - Provider Date of Admission: 12/05/17 16:55 Attending physician: Brennan Yan MD Hospital Course - Lab Results Lab Results: Most Recent Lab Values WBC 4.3 10^3/ul (4.5-11.0) L 12/06/17 06:00 RBC 3.90 10^6/uL (3.5-6.1) 12/06/17 06:00 Hgb 10.6 g/dL (14.0-18.0) L 12/06/17 06:00 Hct 33.8 % (42.0-52.0) L 12/06/17 06:00 MCV 86.7 fl (80.0-105.0) 12/06/17 06:00 MCH 27.2 pg (25.0-35.0) 12/06/17 06:00 MCHC 31.4 g/dl (31.0-37.0) 12/06/17 06:00 RDW 14.1 % (11.5-14.5) 12/06/17 06:00 Plt Count 215 10^3/uL (120.0-450.0) 12/06/17 06:00 MPV 9.9 fl (7.0-11.0) 12/06/17 06:00 Gran % 50.6 % (50.0-68.0) 12/06/17 06:00 Lymph % (Auto) 27.9 % (22.0-35.0) 12/06/17 06:00 Mora % (Auto) 9.1 % (1.0-6.0) H 12/06/17 06:00 Eos % (Auto) 12.2 % (1.5-5.0) H 12/06/17 06:00 Baso % (Auto) 0.2 % (0.0-3.0) 12/06/17 06:00 Gran # 2.16 (1.4-6.5) 12/06/17 06:00 Lymph # (Auto) 1.2 (1.2-3.4) 12/06/17 06:00 Mora # (Auto) 0.4 (0.1-0.6) 12/06/17 06:00 Eos # (Auto) 0.5 (0.0-0.7) 12/06/17 06:00 Baso # (Auto) 0.01 K/mm3 (0.0-2.0) 12/06/17 06:00 Haptoglobin TNP 12/05/17 20:05 PT 14.5 SECONDS (9.4-12.5) H 12/05/17 14:50 INR 1.27 (0.93-1.08) H 12/05/17 14:50 APTT 29.6 Seconds (25.1-36.5) 12/06/17 06:00 pO2 50 mm/Hg (30-55) 12/05/17 14:52 VBG pH 7.30 (7.32-7.43) L 12/05/17 14:52 VBG pCO2 59.0 (40-60) 12/05/17 14:52 VBG HCO3 29.0 mmol/l (21-28) H 12/05/17 14:52 VBG Total CO2 30.8 mmol.L (22-28) H 12/05/17 14:52 VBG O2 Sat (Calc) 86.7 % (40-65) H 12/05/17 14:52 VBG Base Excess 1.2 mmol/L (0.0-2.0) 12/05/17 14:52 VBG Potassium 4.6 mmol/L (3.6-5.2) 12/05/17 14:52 Sodium 136.0 mmol/L (132-148) 12/05/17 14:52 Chloride 106.0 mmol/L (98-107) 12/05/17 14:52 Glucose 74 mg/dl (75-110) L 12/05/17 14:52 Lactate 1.4 mmol/L (0.7-2.1) 12/05/17 14:52 FiO2 21.0 % 12/05/17 14:52 Sodium 141 mmol/L (132-148) 12/06/17 06:00 Potassium 4.3 mmol/L (3.6-5.0) 12/06/17 06:00 Chloride 103 mmol/L (98-107) 12/06/17 06:00 Carbon Dioxide 28 mmol/L (21-33) 12/06/17 06:00 Anion Gap 14 (10-20) 12/06/17 06:00 BUN 12 mg/dL (7-21) 12/06/17 06:00 Creatinine 0.6 mg/dl (0.8-1.5) L 12/06/17 06:00 Est GFR ( Amer) > 60 12/06/17 06:00 Est GFR (Non-Af Amer) > 60 12/06/17 06:00 Random Glucose 102 mg/dL (70-110) 12/06/17 06:00 Calcium 9.3 mg/dL (8.4-10.5) 12/06/17 06:00 Phosphorus 3.2 mg/dL (2.5-4.5) 12/05/17 14:50 Magnesium 2.1 mg/dL (1.7-2.2) 12/05/17 14:50 Iron 35 ug/dL (45-180) L 12/05/17 20:05 TIBC 219 ug/dL (261-462) L 12/05/17 20:05 % Saturation 16 % (20-55) L 12/05/17 20:05 Total Bilirubin 1.2 mg/dL (0.2-1.3) 12/06/17 06:00 AST 28 U/L (17-59) 12/06/17 06:00 ALT 52 U/L (7-56) 12/06/17 06:00 Alkaline Phosphatase 100 U/L (38-126) 12/06/17 06:00 Lactate Dehydrogenase 607 U/L (333-699) 12/05/17 14:50 Total Creatine Kinase 323 U/L (35-230) H 12/05/17 14:50 CK-MB (CK-2) 1.9 ng/mL (0.0-3.6) 12/05/17 14:50 CK-MB (CK-2) % Cancelled 12/05/17 14:50 Troponin I < 0.01 ng/mL 12/06/17 03:00 NT-Pro-B Natriuret Pep 38.4 pg/mL (0-450) 12/05/17 14:50 Total Protein 7.5 g/dL (5.8-8.3) 12/06/17 06:00 Albumin 3.6 g/dL (3.0-4.8) 12/06/17 06:00 Globulin 4.0 gm/dL 12/06/17 06:00 Albumin/Globulin Ratio 0.9 (1.1-1.8) L 12/06/17 06:00 Triglycerides 33 mg/dL (35-160) L 12/05/17 14:50 Cholesterol 123 mg/dL (130-200) L 12/05/17 14:50 LDL Cholesterol Direct 87 mg/dL (0-129) 12/05/17 14:50 HDL Cholesterol 27 mg/dL (29-60) L 12/05/17 14:50 Lipase 27 U/L (23-300) 12/05/17 14:50 TSH 3rd Generation 0.52 mIU/mL (0.46-4.68) 12/05/17 14:50 Venous Blood Potassium 4.6 mmol/L (3.6-5.2) 12/05/17 14:52 Urine Color Yellow (YELLOW) 12/05/17 15:26 Urine Appearance Clear (CLEAR) 12/05/17 15:26 Urine pH 6.0 (4.7-8.0) 12/05/17 15:26 Ur Specific Ponderosa 1.020 (1.005-1.035) 12/05/17 15:26 Urine Protein Negative mg/dL (<30 mg/dL) 12/05/17 15:26 Urine Glucose (UA) Negative mg/dL (NEGATIVE) 12/05/17 15:26 Urine Ketones Negative mg/dL (NEGATIVE) 12/05/17 15:26 Urine Blood Trace-intact (NEGATIVE) H 12/05/17 15:26 Urine Nitrate Negative (NEGATIVE) 12/05/17 15:26 Urine Bilirubin Negative (NEGATIVE) 12/05/17 15:26 Urine Urobilinogen 1.0 E.U./dL (<1 E.U./dL) H 12/05/17 15:26 Ur Leukocyte Esterase Negative Jose/uL (NEGATIVE) 12/05/17 15:26 Urine RBC 0 - 2 /hpf (0-2) 12/05/17 15:26 Urine WBC Negative /hpf (0-6) 12/05/17 15:26 Ur Epithelial Cells None /hpf (0-5) 12/05/17 15:26 Urine Opiates Screen Positive (NEGATIVE) H 12/05/17 15:26 Urine Methadone Screen Negative (NEGATIVE) 12/05/17 15:26 Ur Barbiturates Screen Negative (NEGATIVE) 12/05/17 15:26 Ur Phencyclidine Scrn Negative (NEGATIVE) 12/05/17 15:26 Ur Amphetamines Screen Negative (NEGATIVE) 12/05/17 15:26 U Benzodiazepines Scrn Positive (NEGATIVE) 12/05/17 15:26 U Oth Cocaine Metabols Negative (NEGATIVE) 12/05/17 15:26 U Cannabinoids Screen Negative (NEGATIVE) 12/05/17 15:26 Alcohol, Quantitative < 10 mg/dL (0-10) 12/05/17 20:05 Attending/Attestation - Attestation I have personally seen and examined this patient.: No I have fully participated in the care of the patient.: Yes I have reviewed all pertinent clinical information, including history, physical exam and plan: Yes Notes (Text): Patient left AMA today.
--- NOTE | 2017-12-06 09:14 | CARD ---
APPROVED REPORT EKG Measurement Heart [id number] 176P32 [id number] <Conclusion> Normal sinus rhythm
--- NOTE | 2017-12-06 09:50 | CARD ---
APPROVED REPORT EKG Measurement Heart [id number] <Conclusion> Normal sinus rhythm Minimal voltage criteria for LVH, may be normal variant Borderline ECG
[2017-12-06 14:59] LABS: FOLATE 4.8 ng/mL
[2017-12-06 15:59] LABS: TRANSFERRIN 143.23 mg/dL (206-381)
== END 2017-12-06 08:45 | disposition left against medical advice (07) | DRG 395 ==
LOC: ED 13:20 → ERH 16:55 → MERGE 16:55 → ERH 20:36 → 3RSO 21:29
PROVIDERS: ADMIT Hospitalist; ATTEND Hospitalist
DX: D64.9 Anemia, unspecified (principal); F25.9 Schizoaffective disorder, unspecified; F31.9 Bipolar disorder, unspecified; Z87.891 Personal history of nicotine dependence